=== PATIENT | female | born 1985 | race African-American/Black ===

== ENCOUNTER 2017-03-04 16:26 | Emergency (ER) | payer MEDICAID, OTHER ==
[~2017-03-04] VITALS: Wt 51.0 kg
--- NOTE | 2017-03-04 16:49 | ERA ---
ER Documentation Chief Complaint Date/Time DATE: 03/04/17 TIME: 16:49 Chief Complaint FEVER,BODY ACHES X 6 DAys HPI The patient is a 32-year-old female, presenting to the ER because of intermittent fever, cough for 6 days. He has been taking Aleve and NyQuil. She denies chill, neck pain, chest pain, dyspnea, abdominal pain, complains of vomiting intermittently mostly mucus, denies diarrhea, constipation, skin rash. She just came back from [place] yesterday. She did take antimalarial medication for prophylaxis. She does not smoke, drinks socially, denies any illicit drug Past medical history/surgical history: None ROS All systems reviewed and are negative except as per history of present illness. Medications Home Meds Active Scripts Ibuprofen* (Motrin*) 600 Mg Tab, 600 MG PO Q6H Y for PAIN AND OR ELEVATED TEMP, #30 TAB Prov:NESTOR LOBO MD 03/04/17 Guaifenesin-Codeine Phosphate* (Robitussin* AC) 5 Ml Syrup, 10 ML PO Q6H Y for COUGH, #120 ML Prov:NESTOR LOBO MD 03/04/17 Azithromycin* (Zithromax*) 250 Mg Tablet, 250 MG PO .ZPACK DIRECTED, #6 TAB TAKE 500 MG (2 TABS) THE FIRST DAY THEN 250 MG (1 TAB) DAYS 2-5 Prov:NESTOR LOBO MD 03/04/17 Allergies Allergies: Coded Allergies: No Known Allergy (Unverified , 03/04/17) Physical Exam Vitals Vital Signs Date Time Temp Pulse Resp B/P Pulse Ox O2 Delivery O2 Flow Rate FiO2 03/04/17 16:33 104.0 111 20 113/65 99 Physical Exam Const: No acute distress. Dehydrated Head: Atraumatic. Eyes: Normal Conjunctiva. ENT: Normal External Ears, Nose and Mouth. Bilateral tympanic membranes and oropharynx are within normal limit Neck: Full range of motion. No meningismus. Resp: Clear to auscultation bilaterally. Cardio: Regular rate and rhythm. Abd: Soft, non distended, normal bowel sounds, non tender. Skin: No petechiae or rashes. Back: No midline or flank tenderness. Ext: No cyanosis, or edema. Neur: Awake and alert. No focal deficit Psych: Normal Mood and Affect. Result Diagram: 03/04/17 1720 03/04/17 1720 Results 24 hrs Laboratory Tests Test 03/04/17 17:20 03/04/17 19:28 White Blood Count 8.110^3/ul Red Blood Count 3.0410^6/ul Hemoglobin 9.0g/dl Hematocrit 26.9% Mean Corpuscular Volume 88.5fl Mean Corpuscular Hemoglobin 29.6pg Mean Corpuscular Hemoglobin Concent 33.5g/dl Red Cell Distribution Width 13.4% Platelet Count 6610^3/UL Mean Platelet Volume 12.5fl Neutrophils % 77.0% Lymphocytes % 18.0% Monocytes % 5.0% Neutrophils # 6.210^3/ul Lymphocytes # 1.510^3/ul Monocytes # 0.410^3/ul Platelet Estimate PLT APPEAR DECREASED Prothrombin Time 16.8Sec Prothrombin Time Ratio 1.3 INR International Normalized Ratio 1.36 Activated Partial Thromboplast Time 30.3Sec Sodium Level 134mmol/L Potassium Level 4.0mmol/L Chloride Level 102mmol/L Carbon Dioxide Level 26mmol/L Anion Gap 10 Blood Urea Nitrogen 13mg/dl Creatinine 0.88mg/dl Glucose Level 91mg/dl Lactic Acid Level 1.4mmol/L Calcium Level 8.4mg/dl Total Bilirubin 1.9mg/dl Direct Bilirubin 0.00mg/dl Indirect Bilirubin 1.9mg/dl Aspartate Amino Transf (AST/SGOT) 36IU/L Alanine Aminotransferase (ALT/SGPT) 51IU/L Alkaline Phosphatase 59IU/L Troponin I < 0.012ng/ml Total Protein 7.1g/dl Albumin 3.8g/dl Globulin 3.30g/dl Albumin/Globulin Ratio 1.15 Serum HCG, Qualitative NEGATIVE Bedside Urine pH (LAB) 5.5 Bedside Urine Protein (LAB) 2+ Bedside Urine Glucose (UA) Negative Bedside Urine Ketones (LAB) 1+ Bedside Urine Blood 2+ Bedside Urine Nitrite (LAB) Negative Bedside Urine Leukocyte Esterase (L Negative Current Medications Medications (Trade) Dose Ordered Sig/Ruthy Route PRN Reason Start Time Stop Time Status Last Admin Dose Admin Sodium Chloride (NS) 1,580 ml BOLUS OVER 2 HOURS STAT IV* 03/04/17 17:05 03/04/17 17:07 DC 03/04/17 17:17 Acetaminophen (Tylenol Tab) 650 mg ONCE STAT PO 03/04/17 17:05 03/04/17 17:08 DC 03/04/17 17:17 Ibuprofen (Motrin) 600 mg ONCE ONCE PO 03/04/17 19:00 03/04/17 19:47 DC Procedures/[place] [id number] [place] [id number] Radiology Main Line: [phone] DIAGNOSTIC IMAGING REPORT Patient: SALLIE DESAI : 1985 Age: 32 Sex: F MR #: [id number] DOS: 03/04/17 1705 Ordering MD: NESTOR LOBO MD Location: [facility] Room/Bed: PROCEDURE: XR Chest. CLINICAL INDICATION: Possible sepsis. TECHNIQUE: Single frontal view of the chest was obtained. COMPARISON: None FINDINGS: The soft tissues are normal. The bony elements are normal. The heart, cardiomediastinal silhouette and hilar structures are normal. The pulmonary vasculature is normal. There is a left-sided aorta. The lungs are clear. The costophrenic angles are normal. IMPRESSION: 1. Normal chest x-ray. RPTAT:AAJJ Physician Jay Date Time Electronically viewed and signed by Physician Jay on 03/04/2017 18:50 JM/ CC: NESTOR LOBO MD EKG: Read by emergency physician Rate/Rhythm: Sinus tachycardia 102 beats/min QRS, ST, T-waves: No ST elevation, no T inversion Impression: Abnormal EKG MEDICAL MAKING DECISION: The patient is a 32-year-old female, presenting with acute febrile illness, acute dehydration, acute bronchitis. She was treated with Tylenol and and Motrin for fever and normal saline 30 mL/kg, IV for dehydration with good response The differential diagnoses considered include but are not limited to malaria, pneumonia, cystitis, pyelonephritis, influenza Departure Diagnosis: Primary Impression: Febrile illness, acute Additional Impressions: Bronchitis Dehydration Anemia Thrombocytopenia Condition: Good Comments She was discharged with Phenergan with codeine, Zithromax, Motrin I discussed the findings with the patient. I advised the patient to follow-up with the primary physician in about 1-2 days, sooner if needed and return if any concern. NESTOR LOBO MD Mar 04, 2017 16:49
[2017-03-04] MEDS ORDERED: SODIUM CHLORIDE 0.9% 1L BAG IV* STA (17:05)
[2017-03-04] MEDS ORDERED: ACETAMINOPHEN 325 MG TAB PO STA (17:05)
[2017-03-04 17:36] LABS: ADD SCAN DIFF NO
[2017-03-04 17:38] LABS: ABNORMAL IP MESSAGE 1; HEMATOCRIT 26.9 % (37.0-47.0); MEAN CORPUSCULAR HEMOGLOBIN 29.6 pg (29.0-33.0); MEAN CORPUSCULAR HGB CONC 33.5 g/dl (32.0-37.0); MEAN CORPUSCULAR VOLUME 88.5 fl (82.0-101.0); MEAN PLATELET VOLUME 12.5 fl (7.4-10.4); PLATELET COUNT 66 10^3/UL (140-415); RED BLOOD COUNT 3.04 10^6/ul (4.20-5.40); RED CELL DISTRIBUTION WIDTH 13.4 % (11.5-14.5); WHITE BLOOD COUNT 8.1 10^3/ul (4.8-10.8)
[2017-03-04 17:54] LABS: INR 1.36; PROTIME 16.8 Sec (12.2-14.2); PT RATIO 1.3
[2017-03-04 17:55] LABS: PARTIAL THROMBOPLASTIN TIME 30.3 Sec (25.0-35.0)
[2017-03-04 17:57] LABS: ALANINE AMINOTRANSFERASE 51 IU/L (13-69); ALBUMIN 3.8 g/dl (3.3-4.9); ALBUMIN/GLOBULIN RATIO 1.15; ALKALINE PHOSPHATASE 59 IU/L (42-121); ANION GAP 10 (8-16); ASPARTATE AMINO TRANSFERASE 36 IU/L (15-46); BILIRUBIN,INDIRECT 1.9 mg/dl (0-1.1); BILIRUBIN,TOTAL 1.9 mg/dl (0.2-1.3); BLOOD UREA NITROGEN 13 mg/dl (7-20); CALCIUM 8.4 mg/dl (8.4-10.2); CARBON DIOXIDE 26 mmol/L (21-31); CHLORIDE 102 mmol/L (97-110); CREATININE 0.88 mg/dl (0.44-1.00); GLUCOSE 91 mg/dl (70-220); SODIUM 134 mmol/L (135-144); TOTAL PROTEIN 7.1 g/dl (6.1-8.1)
[2017-03-04 18:01] LABS: LYMPHOCYTES # 1.5 10^3/ul (0.8-2.9); MONOCYTE # 0.4 10^3/ul (0.3-0.9); NEUTROPHIL # 6.2 10^3/ul (1.6-7.5); PLATELET ESTIMATE PLT APPEAR DECREASED
[2017-03-04 18:12] LABS: TROPONIN-I < 0.012 ng/ml (0.00-0.12)
--- NOTE | 2017-03-04 18:50 | RADRPT ---
PROCEDURE: XR Chest. CLINICAL INDICATION: Possible sepsis. TECHNIQUE: Single frontal view of the chest was obtained. COMPARISON: None FINDINGS: The soft tissues are normal. The bony elements are normal. The heart, cardiomediastinal silhouette and hilar structures are normal. The pulmonary vasculature is normal. There is a left-sided aorta. The lungs are clear. The costophrenic angles are normal. IMPRESSION: 1. Normal chest x-ray. RPTAT:AAJJ Physician Jay Date Time Electronically viewed and signed by Allen Tovar Physician on 03/04/2017 18:50 MAGDALENA/
[2017-03-04] MEDS ORDERED: IBUPROFEN 600 MG TAB PO ONE (19:00)
[2017-03-04 19:24] LABS: URINE BLOOD (Dip) POC 2+ (NEGATIVE)
[2017-03-04] MEDS ORDERED: AZIT250T94 PO (19:43)
[2017-03-04] MEDS ORDERED: UDROBAC PO (19:44)
[2017-03-04] MEDS ORDERED: IBUP-1542 PO (19:45)
[2017-03-04 20:28] VITALS: BP 109/55; PULSE 96; RESP 20; TEMP 99.4
== END 2017-03-04 20:31 | disposition home or self-care (01) ==
LOC: FTE 16:26
DX: R50.9 Fever, unspecified (principal); J20.9 Acute bronchitis, unspecified; E86.0 Dehydration; D64.9 Anemia, unspecified; D69.6 Thrombocytopenia, unspecified
CPT/HCPCS: 71010; 80053; 81003; 83605; 84484; 84703; 85025; 85610; 85730; 87040; 93005; J7030; Z7610; 36415